=== PATIENT | female | born 1945 | race Caucasian/White ===

== ENCOUNTER → 2017-06-08 18:01 | Outpatient (CLI) | payer MEDICARE, OTHER ==
[~2017-06-08 18:01] MED LIST: ADVIL200 MG PO; ALEVE220 MG PO; CELEXA20 MG PO; ELIQUIS2.5 MG PO; ULTRAM50 MG PO
[2017-06-24 14:48] VITALS: BMI 33.8
== END | disposition home or self-care (01) ==
LOC: D.LAB 18:01
DX: M17.11 Unilateral primary osteoarthritis, right knee (principal); Z11.8 Encounter for screening for other infectious and parasitic diseases

== ENCOUNTER 2017-06-17 10:00 | Inpatient (IN) | payer MEDICARE, OTHER ==
[~2017-06-17] VITALS: Ht 163.8 cm; Wt 90.7 kg
--- NOTE | ~2017-06-17 | OP ---
PATIENT NAME: CALIXTO MARTINES MEDICAL RECORD: [id number] :45 [facility] [place] AD[facility]ION DATE:06/22/17 SURGEON: SUN HUNT MD DATE OF OPERATION: 06/22/2017 PREOPERATIVE DIAGNOSIS: Degenerative arthritis of the right knee. POSTOPERATIVE DIAGNOSIS: Degenerative arthritis of the right knee. PROCEDURE: Right total knee arthroplasty. SURGEON: Sun Hunt MD ANESTHESIA: General. INTRAOPERATIVE COMPLICATIONS: None. SUMMARY OF PATHOLOGIC FINDINGS: Extensive tricompartmental osteoarthritis consistent with the preoperative radiographs and diagnosis. IMPLANTS USED: Bayard triathlon total knee arthroplasty size 4 distal femur, size 4 tibial baseplate, size 4 x 9 polyethylene times 3 cruciate retaining, the patella was a size 31 x 9, Vitagel was used on this case. OPERATIVE SUMMARY IN DETAIL: After obtaining the appropriate preoperative orthopedic surgery consent as well as anesthetic consultation, evaluation and clearance, the patient was brought to the operating room and placed on the operating table in supine position. After adequate general laryngeal mask airway was administered, tourniquet was placed about the proximal aspect of the right lower extremity. Right lower extremity was then prepped and draped in a routine sterile fashion. The leg was elevated and exsanguinated, tourniquet inflated to 350 mmHg. Routine midline incision was taken down for paramedian arthrotomy. Patella was everted, distal femur was exposed. Soft tissue excision was done in the usual fashion. Distal intramedullary guide hole was created for distal intramedullary guided cuts. Distal femoral cuts were made followed by complete exposure of the proximal tibia. Again, distal intramedullary guidance was used for proximal tibial cut. Proximal tibial cut was made. Measurements were taken. Chamfer cuts were made on the distal femur for a size 4 Triathlon femur. At this point, the trials were put in corresponding to the above-mentioned final components and the knee was taken through range of motion and found to be stable in all planes. Final distal femoral and proximal tibial preparations were made. This was followed by excision of the arthritic surface of the patella for a size 31 x 9 patellar component. Final patellar preparations were made. The knee was irrigated and pulsatile lavaged. The bone ends were then dried and exposed. The proximal tibial baseplate was put in place followed by placing the polyethylene component. Distal femoral component was put into place with good seating. All excess cement was removed. The patella was cemented into place. Again, all excess cement was removed. While the cement was hardening, the knee was again irrigated. After irrigation, all fluid was removed and Vitagel was sprayed into the knee cavity. The paramedian arthrotomy was then closed with #2 Ethibond. Again, Vitagel was sprayed into the prepatellar space and then final closure was achieved with #1 Vicryl followed by 2-0 Vicryl and skin neptali. Sterile dressings were applied. Tourniquet was deflated. The patient was awakened, taken to recovery room in stable condition. All final needle and sponge counts OPERATIVE REPORT [id number] CALIXTO MARTINES were correct. TRANSINT:[id number] Voice Confirmation ID: [id number] DOCUMENT ID: [id number] GILBERT AVERY, SUN GALVEZ at 1258 CC: [id number] DICTATION DATE: 06/22/17 0940 SENIOR STRATEGY MANAGER: 06/22/17 1252 ADM IN [facility] [address] [place] [address]
[~2017-06-17 10:00] MED LIST changes: -ADVIL200 MG PO; -ELIQUIS2.5 MG PO; -ULTRAM50 MG PO
[2017-06-17 11:39] LABS: APPEARANCE CLEAR (CLEAR); BASOPHILS 0.2 % (0-2); BILIRUBIN NEGATIVE (NEGATIVE); COLOR YELLOW (YELLOW); EOSINOPHILS 2.4 % (0-7); GLUCOSE NEGATIVE (NEGATIVE); HEMATOCRIT 38.7 % (36.0-48.0); HEMOGLOBIN 12.9 g/dL (12-16); IMMATURE GRANULOCYTES 0.2 % (0-5); KETONE NEGATIVE (NEGATIVE); LYMPHOCYTES 43.9 % (15-50); MCH 30.3 pg (26.0-34.0); MCHC 33.3 g/dL (31.0-37.0); MCV 90.8 fL (80.0-100.0); MEAN PLATELET VOLUME 10.6 fL (7.4-10.4); NEUTROPHILS 47.3 % (40-80); NITRITE NEGATIVE (NEGATIVE); PLATELET COUNT 167 10x3/uL (130-400); PROTEIN NEGATIVE (NEGATIVE); RBC 4.26 10x6/uL (4.00-5.40); RDW 13.7 % (11.5-14.5); SPECIFIC GRAVITY 1.025 (1.005-1.020); UROBILINOGEN NORMAL (NORMAL); WBC 5.3 10x3/uL (4.8-10.8)
[2017-06-17 11:41] LABS: BACTERIA FEW /hpf (NONE SEEN); MUCUS <1+ /lpf (NONE SEEN); RED CELLS - URINE RARE /hpf (0-5); WHITE CELLS - URINE OCC /hpf (0-5)
[2017-06-17 11:50] LABS: PROTIME 12.8 SECONDS (11.6-15.0)
[2017-06-17 11:51] LABS: APTT 29.4 SECONDS (22.8-39.4)
[2017-06-17 11:58] LABS: CALC OSMOLALITY 283 mosm/kg (275-300); CARBON DIOXIDE 26.9 mmol/L (21.0-32.0); CHLORIDE - SERUM 105 mmol/L (98-107); CREATININE - SERUM 0.8 mg/dL (0.6-1.3); GLUCOSE 94 mg/dL (74-106); POTASSIUM - SERUM 3.9 mmol/L (3.5-5.1); SODIUM 142 mmol/L (136-145); UREA NITROGEN 15 mg/dL (7-18); eGFR NON AFRICAN AMERICAN 75 mL/min (90-120)
[2017-06-22] MEDS ORDERED: ADVIL200 MG PO (06:34)
[2017-06-22 06:54] VITALS: BP 135/68; BMI 35.5
[2017-06-22 18:30] VITALS: BMI 33.8
[2017-06-22 20:00] VITALS: BP 114/64
[2017-06-23 04:00] VITALS: BP 126/61
[2017-06-23 04:49] LABS: HEMATOCRIT 33.6 % (36.0-48.0); MCH 29.9 pg (26.0-34.0); MCHC 32.7 g/dL (31.0-37.0); MCV 91.3 fL (80.0-100.0); MEAN PLATELET VOLUME 10.6 fL (7.4-10.4); RBC 3.68 10x6/uL (4.00-5.40); RDW 13.9 % (11.5-14.5)
[2017-06-23 07:55] VITALS: BP 127/65
[2017-06-23 11:52] VITALS: BP 117/50
[2017-06-23 16:11] VITALS: BP 121/52
[2017-06-23 20:00] VITALS: BP 131/63
[2017-06-24 04:00] VITALS: BP 152/62
[2017-06-24 04:41] LABS: HEMATOCRIT 32.3 % (36.0-48.0); HEMOGLOBIN 10.7 g/dL (12-16); MCH 30.1 pg (26.0-34.0); MCHC 33.1 g/dL (31.0-37.0); MCV 90.7 fL (80.0-100.0); RBC 3.56 10x6/uL (4.00-5.40); RDW 14.1 % (11.5-14.5); WBC 8.2 10x3/uL (4.8-10.8)
[2017-06-24 08:17] VITALS: BP 148/50
[2017-06-24 11:55] VITALS: BP 150/64
[2017-06-24 14:48] VITALS: Ht 163.8 cm; Wt 90.7 kg
[2017-06-24 16:33] VITALS: BP 149/58
[2017-06-24 20:00] VITALS: BP 140/71
[2017-06-25 04:00] VITALS: BP 137/77
[2017-06-25] MEDS ORDERED: ULTRAM50 MG PO (08:37)
[2017-06-25] MEDS ORDERED: ELIQUIS2.5 MG PO (08:37)
[2017-06-25 08:38] VITALS: BP 163/68
[2017-06-25 11:46] VITALS: BP 132/39
[2017-06-25 16:25] VITALS: BP 115/50
== END 2017-06-25 18:11 | disposition home health service (06) | DRG 470 ==
LOC: D.SDCHOLD 10:00 → D.MS 06-22 09:34 → D.SDCHOLD 06-22 10:00 → D.MS 06-22 18:10
PROVIDERS: Orthopaedic Surgery
PROC: 0SRC0J9 Replacement of Right Knee Joint with Synthetic Substitute, Cemented, Open Approach (ICD-10-PCS; principal; 2017-06-22 08:15)
DX: M17.11 Unilateral primary osteoarthritis, right knee (principal); K21.9 Gastro-esophageal reflux disease without esophagitis; K59.00 Constipation, unspecified

== ENCOUNTER 2018-02-08 08:19 | Day surgery (SDC) | payer MEDICARE, OTHER ==
[~2018-02-08] VITALS: Ht 162.6 cm; Wt 83.9 kg
--- NOTE | ~2018-02-08 | OP ---
PATIENT NAME: CALIXTO MARTINES MEDICAL RECORD: [id number] :45 LOCATION:D.OPS ADMISSION DATE: SURGEON: SUN HUNT MD DATE OF OPERATION: 02/08/2018 PREOPERATIVE DIAGNOSES: Arthrofibrosis of the right knee, status post total knee arthroplasty. POSTOPERATIVE DIAGNOSIS: Arthrofibrosis of the right knee, status post total knee arthroplasty. PROCEDURE: Manipulation under anesthesia. SURGEON: Sun Hunt MD ANESTHESIA: TIVA with preoperative femoral nerve block. OPERATIVE SUMMARY IN DETAIL: After obtaining the appropriate preoperative orthopedic surgery consent as well as anesthetic consultation, evaluation and clearance, the patient was brought to the operating room and placed on the [facility]. After adequate TIVA anesthesia was administered, the patient's tibia was stabilized and gentle flexion was carried out to relieve the patient's adhesive capsulitis. Good release was achieved. Flexion was achieved to approximately 130 degrees. Having completed this, the patient was awakened and taken back to the outpatient in stable condition. TRANSINT:[id number] Voice Confirmation ID: [id number] DOCUMENT ID: [id number] SUN HUNT MD at 1419 CC: [id number] DICTATION DATE: 02/08/18 1242 MARINE FIRER: 02/08/18 1259 [facility] 02/08/18 [id number] [place] [address]
[~2018-02-08 08:19] MED LIST changes: +ADVIL200 MG PO; +ELIQUIS2.5 MG PO; +ULTRAM50 MG PO
[2018-02-08 08:47] LABS: HEMATOCRIT 39.5 % (36.0-48.0); HEMOGLOBIN 13.3 g/dL (12-16); MCH 30.4 pg (26.0-34.0); MCHC 33.7 g/dL (31.0-37.0); MCV 90.2 fL (80.0-100.0); MEAN PLATELET VOLUME 9.9 fL (7.4-10.4); RBC 4.38 10x6/uL (4.00-5.40); RDW 13.9 % (11.5-14.5); WBC 5.1 10x3/uL (4.8-10.8)
[2018-02-08] MEDS ORDERED: SULFAMETHOXAZOLE-TMP (09:37)
[2018-02-08] MEDS ORDERED: PROTONIX40 MG PO (09:37)
[2018-02-08] MEDS ORDERED: IBUPROFEN600 MG PO (09:38)
[2018-02-08 09:57] VITALS: BP 135/49; Ht 162.6 cm; Wt 83.9 kg
[2018-02-08] MEDS ORDERED: DILAUDID2 MG PO (11:01)
== END 2018-02-08 12:50 | disposition home or self-care (01) ==
LOC: D.OPS 08:19 → D.PAN 10:30 → D.OPS 10:30 → D.PAN 11:45 → D.OPS 11:45 → D.PAN 12:30 → D.OPS 12:50 → D.PAN 13:30 → D.OPS 13:30
PROVIDERS: Anesthesiology
DX: M24.661 Ankylosis, right knee (principal); Z96.651 Presence of right artificial knee joint; Z01.812 Encounter for preprocedural laboratory examination

== ENCOUNTER → 2018-03-23 08:29 | Outpatient (CLI) | payer MEDICARE, OTHER ==
[2018-02-08 09:57] VITALS: BMI 31.8
[~2018-03-23 08:29] MED LIST changes: +DILAUDID2 MG PO; +IBUPROFEN600 MG PO; +PROTONIX40 MG PO; +SULFAMETHOXAZOLE-TMP
== END | disposition home or self-care (01) ==
LOC: D.MRI 08:29
DX: M54.16 Radiculopathy, lumbar region (principal)